=== PATIENT | female | born 1935 | race Caucasian/White ===

== ENCOUNTER 2023-07-12 10:14 | Emergency (ER) | payer OTHER, MEDICARE, SELFPAY ==
[2023-07-12] VITALS (14 sets, daily range): BP systolic 122–154; BP diastolic 74–96; PULSE 77–94; RESP 16–27; TEMP 36.6; O2SAT 93–99
--- NOTE | 2023-07-12 10:08 | ED.GENADULT ---
HPI - General Adult General Chief complaint: GI Bleed Stated complaint: GI bleed History of Present Illness HPI narrative: Patient is an 87-year-old female who presents to the emergency department this morning via EMS from rehab facility due to hematemesis. Per report, patient has been vomiting blood tinged vomit since 6:00 a.m. this morning. Patient is currently on Xarelto secondary to history of atrial fibrillation. EMS did administer 4 mg IV Zofran prior to arrival. Patient does have history of stroke with aphasia as 1 of her recent central deficits. Patient's daughter was present at bedside at this time and did inform me that the vomit was not bright red, it was brown/dark red in color, resembling a dark tomato soup that she ate last night. Daughter states that the patient had 1 or 2 vomiting episodes maximum, and has not been having intractable nausea since 6:00 a.m. Patient is currently resting comfortably and is denying any symptoms including any chest pain, shortness of breath, any current nausea or vomiting, any abdominal pain, dysuria, hematuria, constipation, diarrhea, melena, hematochezia, fevers or chills. Patient also denies any headaches, dizziness, lightheadedness, blurry visions, focal weakness, numbness and or tingling. There are no other modifying, alleviating, or precipitating factors at this time. Related Data Home Medications Medication Instructions Recorded Confirmed Alive Calcium-Vitamin D3 600 mg PO BID 07/04/23 07/04/23 aspirin 81 mg tablet 81 mg PO DAILY 07/04/23 07/04/23 atorvastatin 40 mg tablet 40 mg PO DAILY 07/04/23 07/04/23 diclofenac sodium 1 % topical gel 2 g topical QID 07/04/23 07/04/23 fluticasone propionate 50 1 spray intranasal DAILY 07/04/23 07/04/23 mcg/actuation nasal spray,suspension hyoscyamine 0.15 mg tablet 0.125 mg PO Q6H PRN Cramps 07/04/23 07/04/23 lisinopril 40 mg tablet 40 mg PO DAILY 07/04/23 07/04/23 metoprolol succinate 50 mg PO DAILY 07/04/23 07/04/23 multivitamin 1 tablet PO DAILY 07/04/23 07/04/23 omega 3-qee-jio-fish oil 1,200 mg 1 cap PO DAILY 07/04/23 07/04/23 (144 mg-216 mg) capsule (Fish Oil) omeprazole 20 mg capsule,delayed 20 mg PO DAILY 07/04/23 07/04/23 release rivaroxaban 15 mg tablet 15 mg PO QPM 07/04/23 07/04/23 tramadol 50 mg tablet 50 mg PO TID PRN Pain (Scale Score 07/04/23 07/04/23 4-6) vitamins A,C,W-yjis-yizdqw 4,296 1 cap PO DAILY 07/04/23 07/04/23 mcg-226 mg-90 mg capsule (PreserVision AREDS) Allergies Allergy/AdvReac Type Severity Reaction Status Date / Time No Known Allergies Allergy Verified 07/05/23 22:32 Review of Systems Review of Systems: All systems are reviewed and are negative unless stated otherwise in the HPI. [facility] Social History Social History Smoking status: Never smoker Spiritual care concerns: No Exam Narrative: General: Awake, alert afebrile, in no acute distress. HEENT: PERRL, no rhinorrhea, no post nasal drip, oropharynx clear. Neck: Trachea midline, no JVD, no lymphadenopathy. Cardiovascular: Regular rate and rhythm, no murmurs, rubs or gallops, no peripheral edema. Respiratory: Clear to auscultation bilaterally, no tachypnea, no wheezing, no rhonchi, no rubs, no respiratory distress. Abdomen: Soft, nontender, nondistended, no rebound, no guarding, no peritoneal signs. Musculoskeletal: No joint swelling or deformity, normal muscle tone. Skin: No rashes or petechia, no signs of infection. Psychiatric: Alert and oriented to person, normal behavior and judgment for situation. Neurological: Alert and oriented to person, place and time, baseline aphasia 2/2 to hx of CVA. Follows commands and moving all extremity spontaneously, otherwise no focal deficits appreciated at this time. Course Vital Signs Vital signs: Vital Signs Temperature 98 F 07/12/23 10:08 Pulse Rate 87 07/12/23 10:08 Respiratory Rate 25 H 07/12/23 10:08 Blood Pressure 154/96 H 07/12/23 10:08 Pulse Oximetry
[2023-07-12 10:38] LABS: Basophils Percent Auto 0.3 % (0.2-1.2); Eosinophils Absolute Auto 0.1 K/mm3 (0-0.3); Eosinophils Percent Auto 0.8 % (0-4.4); Hematocrit 43.3 % (37.0-47.0); Hemoglobin 13.2 g/dL (12.0-15.0); Immature Granulocyte Absolute 0.06 K/mm3 (0.00-0.031); Immature Granulocyte Percent A 0.6 % (0-0.5); Lymphocytes Absolute Auto 1.15 K/mm3 (0.9-3.2); Lymphocytes Percent Auto 10.6 % (18.3-44.2); Mean Corpuscular HGB Conc 30.5 g/dl (32-36); Mean Corpuscular Hemoglobin 28.1 pg (26-34); Mean Corpuscular Volume 92.3 fl (80-100); Mean Platelet Volume 11.1 fl (7.4-10.4); Monocytes Absolute Auto 0.9 K/mm3 (0.1-0.6); Monocytes Percent Auto 8.5 % (2.6-8.5); Neutrophils Absolute Auto 8.6 K/mm3 (1.3-6.7); Neutrophils Percent Auto 79.2 % (45.5-73.1); Platelet Count Result 230 k/mm3 (150-375); Red Blood Count 4.69 M/mm3 (4.2-5.4); Red Cell Distribution Width 16.2 % (11.5-14.5); White Blood Count 10.9 K/mm3 (4.5-10.0)
[2023-07-12 10:48] LABS: Alanine Aminotransferase 13 U/L (6-35); Albumin Level 2.1 g/dL (3.5-5.1); Alkaline Phosphatase 43 U/L (38-126); Anion Gap 3 mmol/L (8-16); Aspartate Amino Transferase 25 U/L (14-36); Bilirubin,Total 0.3 mg/dL (0.2-1.3); Blood Urea Nitrogen 21 mg/dL (7-17); Calcium 6.3 mg/dL (8.4-10.2); Carbon Dioxide 22 mmol/L (22-30); Chloride 113 mmol/L (98-107); Estimated CRCL calculation 47 ml/min; Estimated Glomerular Filt Rate > 60; Glucose 72 mg/dL (65-110); Sodium 138 mmol/L (137-145)
[2023-07-12 10:49] LABS: INR 1.1; Partial Thromboplastin Time 26.1 SECONDS (22.3-36.8); Prothrombin Time 14.9 Seconds (11.1-14.7)
--- NOTE | 2023-07-12 11:57 | PC.NURSE ---
report called to LYNN aguirre RN
== END 2023-07-12 11:58 ==
PROVIDERS: Emergency Provider Emergency Medicine; PCP Internal Medicine
DX: R11.2 Nausea with vomiting, unspecified (principal); I48.91 Unspecified atrial fibrillation; Z79.01 Long term (current) use of anticoagulants; I69.920 Aphasia following unspecified cerebrovascular disease
CPT/HCPCS: 36415; 80053; 85025; 85610; 85730; 86850; 86900; 86901; 99283